=== PATIENT | female | born 1955 | race Caucasian/White ===

== ENCOUNTER → 2017-10-10 | Outpatient (CLI) | payer MEDICARE, OTHER | END | disposition home or self-care (01) | LOC: ROC 10-09 12:56 | PROVIDERS: ATTEND Radiology Radiation Oncology | DX: C79.31 Secondary malignant neoplasm of brain (principal); C34.90 Malignant neoplasm of unspecified part of unspecified bronchus or lung | CPT/HCPCS: 99214; G0463 ==

== ENCOUNTER → 2017-10-17 | Outpatient (CLI) | payer OTHER ==
[~2017-10-17] MED LIST: GADOBUTROL 7.5 MMOL/7.5 ML PFS ONE
== END | disposition home or self-care (01) ==
LOC: CFH 12:29
PROVIDERS: ATTEND Radiology Radiation Oncology
DX: C79.31 Secondary malignant neoplasm of brain (principal); C34.12 Malignant neoplasm of upper lobe, left bronchus or lung; G93.89 Other specified disorders of brain
CPT/HCPCS: 70553; A9585

== ENCOUNTER → 2017-10-23 | Outpatient (CLI) | payer OTHER | END | disposition home or self-care (01) | LOC: PETCFH 09:34 | PROVIDERS: ATTEND Radiology Radiation Oncology | DX: R91.1 Solitary pulmonary nodule (principal); N28.1 Cyst of kidney, acquired; C79.31 Secondary malignant neoplasm of brain; C34.12 Malignant neoplasm of upper lobe, left bronchus or lung; C50.919 Malignant neoplasm of unspecified site of unspecified female breast | CPT/HCPCS: 78815; A9552 ==

== ENCOUNTER 2017-10-30 11:05 | Day surgery (SDC) | payer OTHER ==
[~2017-10-30] VITALS: Ht 156.2 cm; Wt 55.3 kg
[2017-10-30] MEDS ORDERED: PLEASE ENTER HEIGHT AND WEIGHT MC SCH (11:30)
[2017-10-30] MEDS ORDERED: CEFAZOLIN PMX 1GM/50ML 50 ML IV ONE (11:30)
[2017-10-30] MEDS ORDERED: PLEASE ENTER ALLERGIES MC SCH (11:30)
[2017-10-30 11:41] VITALS: BP 158/80
[2017-10-30] MEDS ORDERED: DEXA2TAB PO (11:43)
[2017-10-30] MEDS ORDERED: LEVE750T37 PO (11:43)
[2017-10-30] MEDS ORDERED: CEFAZOLIN PMX 1GM/50ML 50 ML ONE (11:44)
[2017-10-30] MEDS ORDERED: SODIUM CHLORIDE 0.9% 1,000 ML IV SCH (12:00)
[2017-10-30] MEDS ORDERED: LIDOCAINE-MPF 2%, 2ML ONE (12:23)
[2017-10-30] MEDS ORDERED: MIDAZOLAM 1 MG/ML, 5ML ONE (12:26)
[2017-10-30] MEDS ORDERED: FENTANYL PF 100 MCG/2ML ONE (12:26)
[2017-10-30] MEDS ORDERED: NALOXONE 1 MG/ML, 2ML ONE (12:27)
[2017-10-30] MEDS ORDERED: FLUMAZENIL 0.1 MG/1 ML, 5ML ONE (12:27)
== END 2017-10-30 14:23 | disposition home or self-care (01) ==
LOC: RAD 11:05 → OUT 14:23
PROVIDERS: ATTEND Internal Medicine Hematology & Oncology
DX: Z45.2 Encounter for adjustment and management of vascular access device (principal); C34.90 Malignant neoplasm of unspecified part of unspecified bronchus or lung; F17.210 Nicotine dependence, cigarettes, uncomplicated
CPT/HCPCS: 36561; 76937; 77001; C1788; J0690; J1642; J2250; J3010; J3490; J7030; J2310

== ENCOUNTER → 2017-11-25 | Outpatient (CLI) | payer OTHER ==
[~2017-11-25] MED LIST changes: +AMOX250T PO; +DEXA2TAB PO; +FOLI-17 PO; +LEVE750T37 PO
== END | disposition home or self-care (01) ==
LOC: CFH 10:53
PROVIDERS: ATTEND Radiology Radiation Oncology
DX: C79.31 Secondary malignant neoplasm of brain (principal); C34.12 Malignant neoplasm of upper lobe, left bronchus or lung; T50.8X4A Poisoning by diagnostic agents, undetermined, initial encounter; Z87.891 Personal history of nicotine dependence
CPT/HCPCS: 70553; A9585

== ENCOUNTER 2017-12-04 12:12 | Emergency (ER) | payer OTHER ==
[~2017-12-04] VITALS: Ht 154.9 cm; Wt 56.0 kg
[~2017-12-04 12:12] MED LIST changes: -GADOBUTROL 7.5 MMOL/7.5 ML PFS ONE
[2017-12-04] MEDS ORDERED: MORPHINE SULFATE 4 MG/ML, 1ML IVPush PRN (13:00)
[2017-12-04] MEDS ORDERED: SODIUM CHLORIDE FLUSH 10ML SYR IVF ONE (13:00)
[2017-12-04] MEDS ORDERED: PLEASE ENTER HEIGHT AND WEIGHT MC SCH (13:00)
[2017-12-04] MEDS ORDERED: ONDANSETRON ODT 4 MG PO ONE (13:00)
[2017-12-04] MEDS ORDERED: MORPHINE SULFATE 4 MG/ML, 1ML ONE (13:01)
[2017-12-04] MEDS ORDERED: ONDANSETRON ODT 4 MG ONE (13:01)
[2017-12-04] MEDS ORDERED: FENTANYL PF 100 MCG/2ML ONE (13:40)
[2017-12-04] MEDS ORDERED: ETOMIDATE 20 MG/10 ML ONE (13:40)
[2017-12-04 16:15] VITALS: BP 112/52
== END 2017-12-04 17:13 | disposition home or self-care (01) ==
LOC: ED 12:51
DX: M24.351 Pathological dislocation of right hip, not elsewhere classified (principal); F17.210 Nicotine dependence, cigarettes, uncomplicated; Z85.841 Personal history of malignant neoplasm of brain; X50.1XXA Overexertion from prolonged static or awkward postures, initial encounter; Y93.E5 Activity, floor mopping and cleaning; Y92.009 Unspecified place in unspecified non-institutional (private) residence as the place of occurrence of the external cause; Y99.8 Other external cause status
CPT/HCPCS: 27265; 73502; 96374; 99285; Q0162

== ENCOUNTER → 2017-12-31 | Outpatient (CLI) | payer OTHER ==
[~2017-12-31] MED LIST changes: +GADOBUTROL 7.5 MMOL/7.5 ML PFS ONE
== END | disposition home or self-care (01) ==
LOC: CFH 07:28
PROVIDERS: ATTEND Radiology Radiation Oncology
DX: G93.89 Other specified disorders of brain (principal); C79.31 Secondary malignant neoplasm of brain; C34.12 Malignant neoplasm of upper lobe, left bronchus or lung
CPT/HCPCS: 70553; A9585

== ENCOUNTER → 2018-01-31 | Outpatient (CLI) | payer OTHER ==
[~2018-01-31] MED LIST changes: -GADOBUTROL 7.5 MMOL/7.5 ML PFS ONE; +OMNIPAQUE 350 MG/ML, 100ML BOTTLE ONE
== END | disposition home or self-care (01) ==
LOC: RAD 15:48
PROVIDERS: ATTEND Internal Medicine Hematology & Oncology
DX: J43.2 Centrilobular emphysema (principal); I25.10 Atherosclerotic heart disease of native coronary artery without angina pectoris; R91.1 Solitary pulmonary nodule; C34.90 Malignant neoplasm of unspecified part of unspecified bronchus or lung
CPT/HCPCS: 71260; 74177; Q9967

== ENCOUNTER → 2018-02-20 | Outpatient (CLI) | payer OTHER ==
[~2018-02-20] MED LIST changes: -OMNIPAQUE 350 MG/ML, 100ML BOTTLE ONE
== END | disposition home or self-care (01) ==
LOC: ROC 07:21
PROVIDERS: ATTEND Radiology Radiation Oncology
DX: Z08 Encounter for follow-up examination after completed treatment for malignant neoplasm (principal); C34.12 Malignant neoplasm of upper lobe, left bronchus or lung; C79.31 Secondary malignant neoplasm of brain
CPT/HCPCS: 99213; G0463

== ENCOUNTER → 2018-05-16 | Outpatient (CLI) | payer OTHER ==
[~2018-05-16] MED LIST changes: +LOPE2CAP94 PO; +OMNIPAQUE 350 MG/ML, 75ML BOTTLE ONE
== END | disposition home or self-care (01) ==
LOC: CFH 13:25
PROVIDERS: ATTEND Internal Medicine Hematology & Oncology
DX: C34.90 Malignant neoplasm of unspecified part of unspecified bronchus or lung (principal); R91.1 Solitary pulmonary nodule; J43.2 Centrilobular emphysema; I25.10 Atherosclerotic heart disease of native coronary artery without angina pectoris
CPT/HCPCS: 71260; Q9967

== ENCOUNTER 2018-08-17 20:26 | Emergency (ER) | payer OTHER ==
[~2018-08-17] VITALS: Ht 162.6 cm; Wt 47.7 kg
[~2018-08-17 20:26] MED LIST changes: -OMNIPAQUE 350 MG/ML, 75ML BOTTLE ONE
[2018-08-17] MEDS ORDERED: SODIUM CHLORIDE FLUSH 10ML SYR IVF ONE (20:30)
[2018-08-17] MEDS ORDERED: PLEASE ENTER HEIGHT AND WEIGHT MC SCH (21:00)
[2018-08-17] MEDS ORDERED: PLEASE ENTER ALLERGIES MC SCH (21:00)
[2018-08-17] MEDS ORDERED: PROPOFOL 10 MG/ML, 20ML ONE (21:02)
[2018-08-17] MEDS ORDERED: PROPOFOL 10 MG/ML, 20ML IVPush ONE (21:30)
[2018-08-17 22:31] VITALS: BP 106/81
== END 2018-08-17 22:44 | disposition home or self-care (01) ==
LOC: ED 22:26 → MERGE 22:26 → ED 22:44
DX: S73.034A Other anterior dislocation of right hip, initial encounter (principal); T84.021A Dislocation of internal left hip prosthesis, initial encounter; W19.XXXA Unspecified fall, initial encounter; Y93.01 Activity, walking, marching and hiking; Y92.89 Other specified places as the place of occurrence of the external cause; Y99.8 Other external cause status
CPT/HCPCS: 27250; 72170; 73502; 99285; J2704

== ENCOUNTER → 2018-08-26 | Outpatient (CLI) | payer OTHER ==
[~2018-08-26] MED LIST changes: +GADOBUTROL 7.5 MMOL/7.5 ML VIAL ONE; +OMNIPAQUE 350 MG/ML, 100ML BOTTLE ONE
== END | disposition home or self-care (01) ==
LOC: CFH 08:24
PROVIDERS: ATTEND Internal Medicine Hematology & Oncology
DX: K76.89 Other specified diseases of liver (principal); N28.1 Cyst of kidney, acquired; R91.1 Solitary pulmonary nodule; C34.90 Malignant neoplasm of unspecified part of unspecified bronchus or lung
CPT/HCPCS: 70553; 71260; 74177; 82565; A9585; Q9967

== ENCOUNTER 2018-10-08 07:38 | Outpatient (CLI) | payer OTHER | END 2018-10-08 23:59 | disposition home or self-care (01) | LOC: RAD 07:38 → EDSTATUS 08:30 → RAD 23:59 | PROVIDERS: ATTEND Internal Medicine Hematology & Oncology | DX: C34.90 Malignant neoplasm of unspecified part of unspecified bronchus or lung (principal) | CPT/HCPCS: 70553; A9585 ==

== ENCOUNTER 2018-10-17 10:36 | Outpatient (CLI) | payer OTHER ==
[~2018-10-17] VITALS: Ht 154.9 cm; Wt 45.0 kg
[2018-10-17 10:00] VITALS: BP 129/57
== END 2018-10-17 23:59 | disposition home or self-care (01) ==
LOC: INFUSION 10:36
PROVIDERS: ATTEND Internal Medicine Hematology & Oncology
DX: Z51.11 Encounter for antineoplastic chemotherapy (principal); C34.90 Malignant neoplasm of unspecified part of unspecified bronchus or lung; C79.31 Secondary malignant neoplasm of brain; D69.59 Other secondary thrombocytopenia
CPT/HCPCS: 36415; 36591; 80053; 85025; 96413; J9271

== ENCOUNTER → 2018-11-08 | Outpatient (CLI) | payer OTHER ==
[~2018-11-08] VITALS: Ht 157.5 cm; Wt 45.1 kg
[~2018-11-08] MED LIST changes: -GADOBUTROL 7.5 MMOL/7.5 ML VIAL ONE; +LOPE-114 PO; -LOPE2CAP94 PO; +MAGNESIUM SULFATE 4 GM in SODIUM CHLORIDE 0.9% 100 ML IV ONE; +MAGNESIUM SULFATE PMX 4GM/100M 100 ML IVPB ONE; -OMNIPAQUE 350 MG/ML, 100ML BOTTLE ONE; +TURM500C4 PO; +[UNRECOGNIZED DRUG - OTHER] PO
[2018-11-08 10:54] VITALS: BP 137/65
== END | disposition home or self-care (01) ==
LOC: INFUSION 11-07 15:53
PROVIDERS: ATTEND Internal Medicine Hematology & Oncology
DX: C34.90 Malignant neoplasm of unspecified part of unspecified bronchus or lung (principal); C79.31 Secondary malignant neoplasm of brain; Z79.899 Other long term (current) drug therapy
CPT/HCPCS: 96365; 96366; J3475

== ENCOUNTER 2018-12-18 14:05 | Outpatient (CLI) | payer OTHER ==
[~2018-12-18] VITALS: Ht 158.8 cm; Wt 45.2 kg
[~2018-12-18 14:05] MED LIST changes: -MAGNESIUM SULFATE 4 GM in SODIUM CHLORIDE 0.9% 100 ML IV ONE; -MAGNESIUM SULFATE PMX 4GM/100M 100 ML IVPB ONE
[2018-12-18 14:47] LABS: BASOPHILS # (AUTO) 0.03 x10^3/uL (0-0.1); BASOPHILS % (AUTO) 0 % (0-1); EOSINOPHILS # (AUTO) 0.23 x10^3/uL (0-0.4); EOSINOPHILS % (AUTO) 3 % (1-7); LYMPHOCYTES # (AUTO) 1.29 x10^3/uL (1-3.4); LYMPHOCYTES % (AUTO) 14 % (22-44); MD NO; MEAN CORPUSCULAR HEMOGLOBIN 27.2 pg (27.0-34.8); MEAN CORPUSCULAR HGB CONC 32.2 g/dL (32.4-35.8); MEAN CORPUSCULAR VOLUME 84.5 fL (80-100); MONOCYTES # (AUTO) 0.73 x10^3/uL (0.2-0.8); MONOCYTES % (AUTO) 8 % (2-9); NEUTROPHILS % (AUTO) 75 % (42-75); PLATELET COUNT 583 x10^3/uL (130-400); RED BLOOD COUNT 3.55 x10^6/uL (3.82-5.3); RED CELL DISTRIBUTION WIDTH 19.2 % (9.6-15.2)
[2018-12-18] MEDS ORDERED: GRANISETRON IV ONE (15:30)
[2018-12-18] MEDS ORDERED: SODIUM CHLORIDE 0.9% 100 ML IV SCH (15:30)
[2018-12-18] MEDS ORDERED: SODIUM CHLORIDE 0.9% IV ONE ×2 (15:30→16:00)
[2018-12-18] MEDS ORDERED: PEMBROLIZUMAB IV ONE (16:00)
[2018-12-18] MEDS ORDERED: FILTER 0.22 MICRON IV ONE (16:00)
[2018-12-18 16:08] VITALS: BP 115/62
== END 2018-12-18 23:59 | disposition home or self-care (01) ==
LOC: INFUSION 14:05
PROVIDERS: ATTEND Internal Medicine Hematology & Oncology
DX: Z51.11 Encounter for antineoplastic chemotherapy (principal); C34.90 Malignant neoplasm of unspecified part of unspecified bronchus or lung; C79.31 Secondary malignant neoplasm of brain; Z79.899 Other long term (current) drug therapy
CPT/HCPCS: 36415; 36591; 85025; 96413; J9271

== ENCOUNTER → 2019-01-09 | Outpatient (CLI) | payer OTHER ==
[~2019-01-09] VITALS: Ht 154.9 cm; Wt 43.6 kg
[~2019-01-09] MED LIST changes: +FILTER 0.22 MICRON IV ONE; +GRANISETRON IV ONE; +PEMBROLIZUMAB IV ONE; +SODIUM CHLORIDE 0.9% 100 ML IV SCH; +SODIUM CHLORIDE 0.9% IV ONE
[2019-01-09 14:15] VITALS: BP 113/58
[2019-01-09 15:14] LABS: BASOPHILS # (AUTO) 0.03 x10^3/uL (0-0.1); BASOPHILS % (AUTO) 0 % (0-1); EOSINOPHILS # (AUTO) 0.11 x10^3/uL (0-0.4); EOSINOPHILS % (AUTO) 1 % (1-7); LYMPHOCYTES # (AUTO) 1.31 x10^3/uL (1-3.4); LYMPHOCYTES % (AUTO) 16 % (22-44); MD NO; MEAN CORPUSCULAR VOLUME 81.2 fL (80-100); MEAN PLATELET VOLUME 6.4 fL (7.4-10.4); MONOCYTES # (AUTO) 0.71 x10^3/uL (0.2-0.8); MONOCYTES % (AUTO) 9 % (2-9); NEUTROPHILS # (AUTO) 6.13 x10^3/uL (1.8-6.8); NEUTROPHILS % (AUTO) 74 % (42-75); PLATELET COUNT 711 x10^3/uL (130-400); RED BLOOD COUNT 2.83 x10^6/uL (3.82-5.3); RED CELL DISTRIBUTION WIDTH 17.5 % (9.6-15.2)
== END | disposition home or self-care (01) ==
LOC: INFUSION 13:21
PROVIDERS: ATTEND Internal Medicine Hematology & Oncology
DX: Z51.11 Encounter for antineoplastic chemotherapy (principal); C34.90 Malignant neoplasm of unspecified part of unspecified bronchus or lung; C79.31 Secondary malignant neoplasm of brain; Z85.841 Personal history of malignant neoplasm of brain; Z87.891 Personal history of nicotine dependence; Z79.899 Other long term (current) drug therapy
CPT/HCPCS: 36415; 36591; 84443; 85025; 96413; J9271; 86850; 86900; 86923

== ENCOUNTER → 2019-02-06 | Outpatient (CLI) | payer OTHER ==
[~2019-02-06] VITALS: Ht 157.5 cm; Wt 39.2 kg
[~2019-02-06] MED LIST changes: +CATHFLO-ALTEPLASE 2 MG/2 ML CATHFLUSH ONE; -FILTER 0.22 MICRON IV ONE; -GRANISETRON IV ONE; -PEMBROLIZUMAB IV ONE; +POTASSIUM CHLORIDE 20 MEQ in SODIUM CHLORIDE 0.9% 500 ML IV ONE; -SODIUM CHLORIDE 0.9% 100 ML IV SCH; -SODIUM CHLORIDE 0.9% IV ONE
[2019-02-06 14:00] VITALS: BP 122/71
[2019-02-06 14:53] LABS: BASOPHILS # (AUTO) 0.03 x10^3/uL (0-0.1); BASOPHILS % (AUTO) 0 % (0-1); EOSINOPHILS # (AUTO) 0.08 x10^3/uL (0-0.4); EOSINOPHILS % (AUTO) 1 % (1-7); LYMPHOCYTES % (AUTO) 23 % (22-44); MD NO; MEAN CORPUSCULAR VOLUME 80.5 fL (80-100); MEAN PLATELET VOLUME 7.3 fL (7.4-10.4); MONOCYTES # (AUTO) 0.68 x10^3/uL (0.2-0.8); MONOCYTES % (AUTO) 7 % (2-9); NEUTROPHILS # (AUTO) 6.77 x10^3/uL (1.8-6.8); NEUTROPHILS % (AUTO) 69 % (42-75); PLATELET COUNT 684 x10^3/uL (130-400); RED BLOOD COUNT 3.99 x10^6/uL (3.82-5.3); RED CELL DISTRIBUTION WIDTH 17.2 % (9.6-15.2)
[2019-02-06 15:08] LABS: ALBUMIN 2.4 g/dL (3.4-5.0); ANION GAP 8 mmol/L (5-15); CALCIUM 8.4 mg/dL (8.5-10.1); CHLORIDE 110 mmol/L (98-107)
[2019-02-06 15:21] LABS: ALANINE AMINOTRANSFERASE 17 U/L (12-78); ALKALINE PHOSPHATASE 126 U/L (45-117); BILIRUBIN,TOTAL 0.4 mg/dL (0.2-1.0); CREATININE 0.64 mg/dL (0.55-1.02); TOTAL PROTEIN 7.2 g/dL (6.4-8.2)
== END | disposition home or self-care (01) ==
LOC: INFUSION 13:42
PROVIDERS: ATTEND Internal Medicine Hematology & Oncology
DX: E87.6 Hypokalemia (principal); R19.7 Diarrhea, unspecified; C34.90 Malignant neoplasm of unspecified part of unspecified bronchus or lung; C79.31 Secondary malignant neoplasm of brain; Z87.891 Personal history of nicotine dependence; Z79.899 Other long term (current) drug therapy
CPT/HCPCS: 36415; 36593; 80053; 83735; 84443; 85025; 96365; 96366; J2997; J3480; J7040

== ENCOUNTER 2019-02-07 15:43 | Outpatient (CLI) | payer OTHER ==
[~2019-02-07] VITALS: Ht 157.5 cm; Wt 40.4 kg
[2019-02-07 09:00] VITALS: BP 125/59
[2019-02-07 09:19] LABS: ALANINE AMINOTRANSFERASE 17 U/L (12-78); ALBUMIN 2.3 g/dL (3.4-5.0); ANION GAP 7 mmol/L (5-15); CALCIUM 8.2 mg/dL (8.5-10.1); CHLORIDE 113 mmol/L (98-107); CREATININE 0.58 mg/dL (0.55-1.02)
[2019-02-07 09:21] LABS: ALKALINE PHOSPHATASE 119 U/L (45-117); BILIRUBIN,TOTAL 0.5 mg/dL (0.2-1.0); TOTAL PROTEIN 7.1 g/dL (6.4-8.2)
[~2019-02-07 15:43] MED LIST changes: -CATHFLO-ALTEPLASE 2 MG/2 ML CATHFLUSH ONE; +NS + 40MEQ KCL 1,000 ML IV ONE; -POTASSIUM CHLORIDE 20 MEQ in SODIUM CHLORIDE 0.9% 500 ML IV ONE
[2019-02-07 16:21] LABS: CLOSTRIDIUM DIFFICILE ANTIGEN NEGATIVE; CLOSTRIDIUM DIFFICILE TOXIN NEGATIVE (Negative)
== END 2019-02-07 23:59 | disposition home or self-care (01) ==
LOC: INFUSION 15:43
PROVIDERS: ATTEND Internal Medicine Hematology & Oncology
CPT/HCPCS: 36415 ×2; 80053 ×2; 83735 ×2; 87324 ×2; 96365 ×2; 96366 ×2; J3480

== ENCOUNTER → 2019-02-13 | Outpatient (CLI) | payer OTHER ==
[~2019-02-13] MED LIST changes: -NS + 40MEQ KCL 1,000 ML IV ONE
== END | disposition home or self-care (01) ==
LOC: CFH 14:03
PROVIDERS: ATTEND Internal Medicine Hematology & Oncology
DX: M79.604 Pain in right leg (principal); M79.605 Pain in left leg; R60.0 Localized edema; C34.90 Malignant neoplasm of unspecified part of unspecified bronchus or lung
CPT/HCPCS: 93970